=== PATIENT | male | born 1990 | race African-American/Black ===

== ENCOUNTER 2022-12-16 13:35 | Emergency (ER) | payer SELFPAY ==
[~2022-12-16] VITALS: Ht 175.3 cm; Wt 82.6 kg
[2022-12-16 15:00] LABS: Urine Bacteria FEW /hpf (None Seen); Urine Blood Negative /uL (Negative); Urine Mucus FEW (None Seen); Urine Specific Gravity 1.036 (1.001-1.035); Urine WBC 3 /hpf (0 - 3)
[2022-12-16] MEDS ORDERED: ONDANSETRON ODT 4 MG TAB PO ONE (15:15)
[2022-12-16 15:27] LABS: Basophils # (auto) 0 10 ^3/uL (0-0.2); Basophils % (auto) 0.1 % (0.0-2.0); Eosinophils # (auto) 0 10 ^3/uL (0-0.8); Hematocrit 47.3 % (41.0-53.0); Hemoglobin 16.3 g/dL (13.5-17.5); Lymphocytes # (auto) 0.3 10 ^3/uL (0.4-5.4); Lymphocytes % (auto) 3.9 % (10.0-50.0); Mean Corpuscular Hemoglobin 31.3 pg (28.0-32.0); Mean Corpuscular Hgb Conc. 34.5 g/dL (32.0-36.0); Mean Corpuscular Volume 90.8 fL (80.0-100.0); Monocytes # (auto) 0.3 10 ^3/uL (0-1.3); Nucleated Red Blood Cells % 0.2 %; Red Blood Cells 5.21 10^6/uL (4.5-5.90); Red Cell Distribution Width 13.2 % (11.8-14.3); White Blood Cell 8.7 10^3/uL (4.4-10.8)
[2022-12-16 15:40] LABS: Albumin 4.1 g/dL (3.4-5.0); BUN/Creatinine Ratio 10.7 (10.0-20.0); Calcium 9.7 mg/dL (8.5-10.1); Potassium 4.1 mmol/L (3.5-5.1)
[2022-12-16 15:42] LABS: Bilirubin, Total 0.4 mg/dL (0.2-1.0); Total Protein 8.8 g/dL (6.4-8.2)
[2022-12-16] MEDS ORDERED: ONDA-144 PO ×2 (16:12→18:41)
[2022-12-16] MEDS ORDERED: DICY10CA PO ×2 (16:12→18:41)
[2022-12-16 17:11] VITALS: BP 130/89
== END 2022-12-16 17:14 | disposition home or self-care (01) ==
LOC: ER 13:35 → EDBD 13:35 → ER 17:06
DX: K29.70 Gastritis, unspecified, without bleeding (principal); R10.13 Epigastric pain; Z91.013 Allergy to seafood
CPT/HCPCS: 36415; 74176; 80053; 81001; 83690; 85025; 99284; Q0162